=== PATIENT | female | born 1955 | race Caucasian/White ===

== ENCOUNTER → 2021-04-07 08:14 | Outpatient (CLI) | payer OTHER | END | disposition home or self-care (01) | LOC: LAB 08:14 | PROVIDERS: ATTEND Obstetrics & Gynecology | DX: I10 Essential (primary) hypertension (principal); E78.49 Other hyperlipidemia; E03.8 Other specified hypothyroidism; N30.00 Acute cystitis without hematuria; Z12.11 Encounter for screening for malignant neoplasm of colon; E83.51 Hypocalcemia ==

== ENCOUNTER → 2021-04-27 | Outpatient (CLI) | payer OTHER | END | disposition home or self-care (01) | LOC: MAMO-SONO 08:15 | PROVIDERS: ATTEND Obstetrics & Gynecology | DX: Z12.31 Encounter for screening mammogram for malignant neoplasm of breast (principal); N60.11 Diffuse cystic mastopathy of right breast; N60.12 Diffuse cystic mastopathy of left breast ==

== ENCOUNTER 2021-08-11 11:17 | Outpatient (CLI) | payer OTHER | END 2021-08-11 11:32 | disposition home or self-care (01) | LOC: RAD 11:17 | PROVIDERS: ATTEND Urology | DX: N20.0 Calculus of kidney (principal); R31.21 Asymptomatic microscopic hematuria ==